=== PATIENT | female | born 1970 | race Caucasian/White ===

== ENCOUNTER → 2018-01-07 09:00 | Outpatient (CLI) | payer OTHER, MEDICAID, SELFPAY ==
--- NOTE | 2018-01-07 09:04 | DI.MG.S_ITS ---
BILATERAL DIGITAL DIAGNOSTIC MAMMOGRAM 3D/2D: 01/07/2018 CLINICAL: Right breast mass. Bilateral breast pain. Comparison is made to exams dated: 01/08/2017 mammogram, 01/07/2016 mammogram, 01/02/2015 mammogram, 01/07/2018 ultrasound, 01/15/2017 ultrasound, and 01/02/2015 ultrasound - [facility]. The tissue of both breasts is extremely dense, which lowers the sensitivity of mammography. Patient reports bilateral lateral breast pain and tenderness. There is no mammographic correlate to explain these symptoms. Multiple oval masses correlating to previously identified right breast cysts are similar in appearance to prior exam. No other significant masses, calcifications, or other findings are seen in either breast. IMPRESSION: INCOMPLETE: NEEDS ADDITIONAL IMAGING EVALUATION 1) Stable appearing multiple right breast masses that were identified as cysts on comparison exam. Recommend targeted ultrasound for further evaluation. 2) Negative mammographic evaluation for patient's reported bilateral breast pain and tenderness. Recommend targeted ultrasound for further evaluation. This exam was interpreted at Station ID: [id number]. NOTE: For mammograms, a report in lay terms will be sent to the patient. Approximately 15% of breast malignancies will not be visualized mammographically. In the management of a palpable breast mass, a negative mammogram must not discourage biopsy of a clinically suspicious lesion. Electronically Signed By: Quique Pizarro M.D. ecl/:01/07/2018 11:39:35 letter sent: Additional Imaging Needed ACR BI-RADS Category 0: Incomplete 3340F
--- NOTE | 2018-01-07 09:04 | DI.US.S_ITS ---
ULTRASOUND OF RIGHT BREAST: 01/07/2018 CLINICAL: Follow-up on right breast cysts and reported pain/tenderness in the right upper outer quadrant of the right breast. Comparison is made to exams dated: 01/07/2018 mammogram, 01/15/2017 ultrasound, 01/08/2017 mammogram, 01/07/2016 mammogram, and 01/02/2015 [facility]. Real-time and Doppler ultrasound of the right breast were performed. Bright scale images of the real-time examination were reviewed. There is a benign 2.7 cm x 2.7 cm x 1.9 cm oval cyst with a smooth internal wall in the right breast at 2 o'clock 3 cm from the nipple. This oval cyst is anechoic with posterior acoustic enhancement. This correlates with mammography findings. Color flow imaging demonstrates that there is no vascularity present. There also is a benign 3.3 cm x 2.6 cm x 1.6 cm oval cyst with a smooth internal wall in the right breast at 10 o'clock in the retroareolar region. This oval cyst is anechoic with posterior acoustic enhancement. This correlates with mammography findings. Color flow imaging demonstrates that there is no vascularity present. Targeted ultrasound of the right upper outer breast at the site of the patient's indicated pain and tenderness to palpation demonstrates no additional sonographic abnormalities. IMPRESSION: BENIGN 1) There is no sonographic evidence of malignancy. Return to annual mammogram screening schedule is recommended. 2) Diagnostic mammogram and ultrasound identified multiple simple cysts within the right breast measuring up to 3.3 cm in greatest diameter. There are no other mammographic or sonographic findings to explain breast pain/tenderness. Recommend clinical follow-up for management of these symptoms. A cyst aspiration could be performed should that be desired by the patient and her referring provider. This exam was interpreted at Station ID: [id number]. Electronically Signed By: Quique Pizarro M.D. ecl/:01/07/2018 12:19:20 letter sent: Clinical Evaluation Ultrasound BI-RADS: 2 Benign
--- NOTE | 2018-01-07 14:03 | DI.US.S_ITS ---
ULTRASOUND OF LEFT BREAST: 01/07/2018 CLINICAL: Focal left upper outer breast pain. Comparison is made to exams dated: 01/07/2018 mammogram, 01/15/2017 ultrasound, and 01/08/2017 mammogram - [facility]. Real-time and Doppler ultrasound of the left breast were performed. Bright scale images of the real-time examination were reviewed. There are three oval circumscribed anechoic cysts with no vascularity on Doppler ultrasound in the left breast at 2:00 position 4 cm from the nipple. The largest measures up to 0.6 x 0.6 cm in greatest diameter. No other masses or abnormalities are identified on targeted ultrasound of the upper outer left breast. IMPRESSION: BENIGN 1) There is no sonographic evidence of malignancy. Return to annual mammogram screening schedule is recommended. 2) Multiple simple cysts within the upper outer left breast measuring up to 0.6 cm in greatest diameter. There are no other mammographic or sonographic findings to explain patient's reported breast pain/tenderness. Recommend clinical follow-up for management of these symptoms. This exam was interpreted at Station ID: [id number]. Electronically Signed By: Quique Pizarro M.D. ecl/:01/07/2018 15:07:14 letter sent: Clinical Evaluation Ultrasound BI-RADS: 2 Benign
== END ==
PROVIDERS: PCP Physician Assistant
DX: R92.8 Other abnormal and inconclusive findings on diagnostic imaging of breast (principal); N60.01 Solitary cyst of right breast; N60.02 Solitary cyst of left breast; N64.4 Mastodynia
CPT/HCPCS: 76642; 77066; G0279

== ENCOUNTER → 2019-03-17 15:27 | Outpatient (CLI) | payer OTHER, SELFPAY ==
--- NOTE | 2019-03-17 | DI.MG.S_ITS ---
BILATERAL DIGITAL SCREENING MAMMOGRAM 3D/2D WITH CAD: 03/17/2019 CLINICAL: Routine screening. Comparison is made to exams dated: 01/07/2018 mammogram, 01/08/2017 mammogram, and 01/07/2016 mammogram - [facility]. The tissue of both breasts is heterogeneously dense. This may lower the sensitivity of mammography. Current study was also evaluated with a Computer Aided Detection (CAD) system. No significant masses, calcifications, or other findings are seen in either breast. There has been no significant interval change. IMPRESSION: NEGATIVE There is no mammographic evidence of malignancy. A 1 year screening mammogram is recommended. This exam was interpreted at Station ID: [id number]. NOTE: For mammograms, a report in lay terms will be sent to the patient. Approximately 15% of breast malignancies will not be visualized mammographically. In the management of a palpable breast mass, a negative mammogram must not discourage biopsy of a clinically suspicious lesion. Electronically Signed By: Cathy evans/jayesh:03/17/2019 17:13:23 letter sent: Normal Exam ACR BI-RADS Category 1: Negative [id number]
== END ==
PROVIDERS: PCP Physician Assistant
DX: Z12.31 Encounter for screening mammogram for malignant neoplasm of breast (principal)
CPT/HCPCS: 77063; 77067